=== PATIENT | male | born 1995 ===

== ENCOUNTER 2018-08-29 13:25 | Emergency (ER) | payer SELFPAY ==
[2018-08-29 13:36] VITALS: BP 142/94
[2018-08-29] MEDS ORDERED: MOTRIN PO ONE (15:45)
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
== END 2018-08-29 16:26 | disposition home or self-care (01) ==
LOC: ED 13:25
DX: S66.911A Strain of unspecified muscle, fascia and tendon at wrist and hand level, right hand, initial encounter (principal); F41.9 Anxiety disorder, unspecified; Z88.0 Allergy status to penicillin; V89.2XXA Person injured in unspecified motor-vehicle accident, traffic, initial encounter; Y93.89 Activity, other specified; Y99.8 Other external cause status; Y92.410 Unspecified street and highway as the place of occurrence of the external cause